=== PATIENT | female | born 1990 | race Two or more races ===

== ENCOUNTER 2023-04-25 07:20 | Emergency (ER) | payer OTHER ==
[~2023-04-25] VITALS: Ht 162.6 cm; Wt 63.5 kg
[2023-04-25] MEDS ORDERED: AMOX-CLAV 875-1 EAC1 PO (09:30)
== END 2023-04-25 09:58 | disposition home or self-care (01) ==
LOC: ER 07:20
DX: H66.92 Otitis media, unspecified, left ear (principal)